=== PATIENT | male | born 1980 | race Caucasian/White ===

== ENCOUNTER 2020-03-04 17:15 | Outpatient (REF) | payer OTHER, SELFPAY ==
--- NOTE | 2020-03-04 17:19 | XR_ITS ---
EXAMINATION: CHEST 2 VIEWS CLINICAL INFORMATION: Pleurodynia. COMPARISON: February 06, 2016. TECHNIQUE: PA and lateral views of the chest were obtained. FINDINGS: The cardiac silhouette is not enlarged. The mediastinal and hilar contours are unremarkable. There are neither pleural effusions nor pneumothoraces. There are no consolidations. The osseous structures are unremarkable. XR/XR chest 2V IMPRESSION: No evidence for acute disease.
== END 2020-03-04 17:16 | disposition home or self-care (01) ==
LOC: HO.HMGCX 17:15
PROVIDERS: Visit Provider Physician Assistant
DX: R07.81 Pleurodynia (principal)
CPT/HCPCS: 71046

== ENCOUNTER 2020-03-21 08:22 | Outpatient (REF) | payer OTHER, SELFPAY ==
[2020-03-21 11:40] LABS: D Dimer < 200 NG/ML
[2020-03-21 11:52] LABS: Alanine Aminotransferase 34 U/L (0-40); Albumin Level 4.7 g/dL (3.5-5.0); Alkaline Phosphatase 80 U/L (39-117); Anion Gap 13 (12-20); Aspartate Amino Transferase 27 U/L (5-37); Bilirubin Total 0.7 mg/dL (0.0-1.0); Blood Urea Nitrogen 14 mg/dL (9-16); Calcium 9.9 mg/dL (8.4-10.2); Carbon Dioxide 32 mmol/L (22-29); Chloride 102 mmol/L (96-108); Estimated Glomerular Filt Rate > 60; Glucose Random 85 mg/dL (60-115); Potassium 5.1 mmol/l (3.3-5.1); Sodium 142 mmol/L (135-145); Total Protein 7.4 g/dL (6.5-8.0)
[2020-03-21 12:13] LABS: TSH reflex Free T4 1.26 mIU/mL (0.32-4.0)
== END 2020-03-21 08:23 | disposition home or self-care (01) ==
LOC: HO.HMGCLDS 08:22
PROVIDERS: PCP Internal Medicine; Visit Provider Nurse Practitioner Family
DX: E87.5 Hyperkalemia (principal); R07.81 Pleurodynia; R07.9 Chest pain, unspecified
CPT/HCPCS: 36415; 80053; 84443; 85379

== ENCOUNTER 2020-04-05 12:53 | Outpatient (REF) | payer OTHER, SELFPAY ==
--- NOTE | ~2020-04-05 | CT_ITS ---
EXAMINATION: CT CHEST WITHOUT CONTRAST CLINICAL INFORMATION: Chest pain COMPARISON: Previous chest x-ray most recent 03/04/[address] 02/06/2016 TECHNIQUE: Multidetector volumetric CT imaging of the chest was done. Axial MIP volume rendering provided. Sagittal and coronal reformatted images were obtained. This CT examination was performed using dose optimization techniques as appropriate, variously including the following: *Automated exposure control *Adjustment of mA and/or kV according to patient size (this includes techniques or standardized protocols for targeted exams where dose is matched to indication/reason for exam; i.e. extremities or head) *Use of iterative reconstruction technique DLP: 145 mGy-cm FINDINGS: PHYSICIAN/OPHTHALMOLOGIST: Unremarkable. LUNGS: The lungs are clear with no evidence of inflammation or nodules. MEDIASTINUM: The mediastinum is normal. PLEURA: There is no pleural effusion. No pleural mass or thickening. AXILLA: No lymphadenopathy. UPPER ABDOMEN: Unremarkable. OSSEOUS STRUCTURES: Unremarkable. CT/CT chest wo con IMPRESSION: Unremarkable examination.
== END 2020-04-05 12:54 | disposition home or self-care (01) ==
LOC: HO.CT 12:53
PROVIDERS: PCP Internal Medicine; Visit Provider Nurse Practitioner Family
DX: R07.9 Chest pain, unspecified (principal)
CPT/HCPCS: 71250

== ENCOUNTER 2021-09-26 15:08 | Outpatient (REF) | payer OTHER, SELFPAY ==
--- NOTE | ~2021-09-26 | XR_ITS ---
EXAMINATION: XR KNEE, LEFT CLINICAL INFORMATION: Pain in the left knee. COMPARISON: None TECHNIQUE: Four views of the left knee. FINDINGS: No evidence of acute fractures or subluxation. No significant degenerative changes. No erosions or chondrocalcinosis. Small to moderate joint effusion. XR/XR knee LT 4V IMPRESSION: No acute fracture or malalignment. Nonspecific small to moderate size joint effusion.
== END 2021-09-26 15:09 | disposition home or self-care (01) ==
LOC: HO.HMGCX 15:08
PROVIDERS: PCP Nurse Practitioner Family; Visit Provider Nurse Practitioner Family
DX: M25.562 Pain in left knee (principal)
CPT/HCPCS: 73564

== ENCOUNTER → 2021-10-17 13:37 | Outpatient (BNVA) | payer OTHER, SELFPAY | PROVIDERS: PCP Nurse Practitioner Family; Visit Provider Physician Assistant | DX: M65.341 Trigger finger, right ring finger (principal) | CPT/HCPCS: 20550; 99202; J1100 ==

== ENCOUNTER 2021-11-17 12:47 | Outpatient (REF) | payer OTHER, SELFPAY ==
--- NOTE | ~2021-11-17 | XR_ITS ---
EXAMINATION: XR KNEE AP STANDING. Patella view CLINICAL INFORMATION: Pain in the right knee COMPARISON: X-rays of the left knee August 2021 TECHNIQUE: AP bilateral standing view of the knees was obtained. Patella view left FINDINGS: Left knee: Bones joints and soft tissues are normal. Right knee limited: The medial lateral compartments are normal surrounding bone and soft tissues normal. XR/XR knee LT 1V IMPRESSION: Left knee Limited: Normal exam. Right knee Limited: Normal.
--- NOTE | ~2021-11-17 | XR_ITS ---
EXAMINATION: XR KNEE AP STANDING. Patella view CLINICAL INFORMATION: Pain in the right knee COMPARISON: X-rays of the left knee August 2021 TECHNIQUE: AP bilateral standing view of the knees was obtained. Patella view left FINDINGS: Left knee: Bones joints and soft tissues are normal. Right knee limited: The medial lateral compartments are normal surrounding bone and soft tissues normal. XR/XR knee standing BI IMPRESSION: Left knee Limited: Normal exam. Right knee Limited: Normal.
== END 2021-11-17 12:48 | disposition home or self-care (01) ==
LOC: HO.HOSX 12:47
PROVIDERS: Visit Provider Physician Assistant
DX: M70.42 Prepatellar bursitis, left knee (principal)
CPT/HCPCS: 73560; 73565; 99212

== ENCOUNTER → 2021-11-19 14:38 | Outpatient (BNVA) | payer OTHER, SELFPAY | PROVIDERS: PCP Nurse Practitioner Family; Visit Provider Internal Medicine | DX: K62.89 Other specified diseases of anus and rectum (principal) | CPT/HCPCS: 99202 ==

== ENCOUNTER 2021-11-19 15:43 | Outpatient (REF) | payer OTHER, SELFPAY ==
[2021-11-19 17:41] LABS: Hematocrit 46.5 % (42.0-52.0); Hemoglobin 15.7 g/dl (14.0-18.0); Mean Corpuscular HGB Conc 33.8 g/dl (31.0-36.0); Mean Corpuscular Hemoglobin 29.9 pg (27.0-33.0); Mean Corpuscular Volume 88.6 fL (80.0-98.0); Mean Platelet Volume 11.9 fL (9.4-12.4); Platelet Count 268 X10*3/uL (160-400); Red Blood Count 5.25 X10*6/uL (4.60-5.80); Red Cell Distribution Width 12.9 % (11.0-16.0); White Blood Count 6.6 X10*3/uL (4.8-10.8)
[2021-11-19 17:57] LABS: C Reactive Protein 0.11 mg/dL (< or = 0.50)
[2021-11-20 08:35] LABS: HIV AB/AG Nonreactive (Nonreactive); HIV Num 1 0.06 S/CO (0.00-0.99)
== END 2021-11-19 15:44 | disposition home or self-care (01) ==
LOC: HO.LAB 15:43
PROVIDERS: PCP Nurse Practitioner Family; Visit Provider Internal Medicine
DX: Z11.4 Encounter for screening for human immunodeficiency virus [HIV] (principal); K62.89 Other specified diseases of anus and rectum; R19.7 Diarrhea, unspecified
CPT/HCPCS: 36415; 85027; 86140; 87389

== ENCOUNTER 2022-01-30 07:16 | Outpatient (REF) | payer OTHER, SELFPAY ==
[2022-01-30 11:39] LABS: MANUAL DIFF FLAG NO
[2022-01-30 11:41] LABS: Basophils Percent Auto 0.4 % (0-2); Eosinophils Absolute Auto 0.2 X10*3/uL (0.0-0.4); Eosinophils Percent Auto 2.9 % (0-4); Hematocrit 48.4 % (42.0-52.0); Hemoglobin 15.7 g/dl (14.0-18.0); Imm Gran Abs Auto 0.02 X10*3/uL (0.00-0.03); Imm Gran Pct Auto 0.4 % (0.0-0.4); Lymphocytes Absolute Auto 1.5 X10*3/uL (1.2-4.9); Lymphocytes Percent Auto 28.5 % (20-40); Mean Corpuscular HGB Conc 32.4 g/dl (31.0-36.0); Mean Corpuscular Hemoglobin 29.2 pg (27.0-33.0); Mean Corpuscular Volume 90.1 fL (80.0-98.0); Monocytes Absolute Auto 0.6 X10*3/uL (0.1-1.2); Monocytes Percent Auto 11.3 % (2-11); Neutrophils Percent Auto 56.5 % (45-73); Platelet Count 266 X10*3/uL (160-400); Red Blood Count 5.37 X10*6/uL (4.60-5.80); Red Cell Distribution Width 12.8 % (11.0-16.0); White Blood Count 5.2 X10*3/uL (4.8-10.8)
[2022-01-30 12:46] LABS: Alanine Aminotransferase 64 U/L (0-40); Albumin Level 4.5 g/dL (3.5-5.0); Alkaline Phosphatase 117 U/L (39-117); Aspartate Amino Transferase 38 U/L (5-37); Bilirubin Total 0.4 mg/dL (0.0-1.0); Blood Urea Nitrogen 15 mg/dL (9-16); Calcium 9.7 mg/dL (8.4-10.2); Carbon Dioxide 30 mmol/L (22-29); Estimated Glomerular Filt Rate > 60; Ferritin 138 ng/mL (20-250); Glucose Random 86 mg/dL (60-115); Iron 61 mcg/dL (45-160); Percent Iron Saturation 24 % (15-50); Total Iron Binding Capacity 256 mcg/dL (228-428); Total Protein 7.2 g/dL (6.5-8.0); Unsaturated Iron Binding 195 ug/dL
[2022-01-30 13:03] LABS: Vitamin B12 478 pg/mL (200-900)
[2022-01-30 13:05] LABS: Anion Gap 18 (12-20); Chloride 102 mmol/L (96-108); Potassium 4.7 mmol/L (3.3-5.1); Sodium 143 mmol/L (135-145)
[2022-01-30 13:35] LABS: TSH reflex Free T4 1.71 uIU/mL (0.32-4.0)
[2022-02-02 12:03] LABS: Anti Nuclear Antibody Screen NEGATIVE (NEGATIVE)
[2022-02-04 13:22] LABS: A. Phagocytphilium DNA,RT-PCR NOT DETECTED (NOT DETECTED); Babesia Microti DNA, RT-PCR NOT DETECTED (NOT DETECTED); Borrelia Miyamotoi,DNA RT-PCR NOT DETECTED (NOT DETECTED); E.Chaffeensis DNA RT-PCR NOT DETECTED (NOT DETECTED); Lyme(Borrelia ssp)DNA RT-PCR NOT DETECTED (NOT DETECTED)
[2022-02-05 21:03] LABS: Testosterone, Free 91.7 pg/mL (35.0-155.0); Testosterone, Total 549 ng/dL (250-1100)
== END 2022-01-30 07:17 | disposition home or self-care (01) ==
LOC: HO.HMGCLDS 07:16
PROVIDERS: PCP Nurse Practitioner Family; Visit Provider Nurse Practitioner Family
DX: R53.83 Other fatigue (principal)
CPT/HCPCS: 36415; 80053; 82607; 82728; 83540; 84402; 84403; 84443; 85025; 86038; 86039; 87798; 87801

== ENCOUNTER 2022-03-06 09:03 | Outpatient (REF) | payer OTHER, SELFPAY ==
--- NOTE | ~2022-03-06 | US_ITS ---
EXAMINATION: US ABDOMEN COMPLETE CLINICAL INFORMATION: Elevated LFTs. COMPARISON: None TECHNIQUE: Real-time imaging of the abdominal viscera. FINDINGS: PANCREAS: Essentially obscured by bowel gas. Partially visualized neck appears unremarkable. ABDOMINAL AORTA: The proximal, mid, and distal segments are normal in caliber. INFERIOR VENA CAVA: Visualized portions are normal. LIVER: Normal. The liver is normal in size. The liver contour is normal. Parenchymal echogenicity is normal. No focal hepatic lesion. There is no intrahepatic biliary duct dilatation seen. GALLBLADDER: Normal. The gallbladder is physiologically distended without evidence of stones, sludge, polyps, wall thickening or pericholecystic fluid. COMMON BILE DUCT: Normal in caliber measuring 0.3 cm in diameter. RIGHT KIDNEY: Normal. No hydronephrosis. No renal calculi or focal parenchymal lesions. The kidney measures 10.2 cm in maximum dimension. LEFT KIDNEY: Normal. No hydronephrosis. No renal calculi or focal parenchymal lesions. The kidney measures 11.0 cm in maximum dimension. SPLEEN: Normal. The spleen measures 10.1 cm in maximum dimension. FREE FLUID: None. US/US abdomen complete IMPRESSION: 1. Pancreas obscured by bowel gas. 2. Otherwise unremarkable study.
== END 2022-03-06 09:04 | disposition home or self-care (01) ==
LOC: HO.HMGCX 09:03
PROVIDERS: PCP Nurse Practitioner Family; Visit Provider Nurse Practitioner Family
DX: R74.8 Abnormal levels of other serum enzymes (principal)
CPT/HCPCS: 76700

== ENCOUNTER 2022-03-28 13:27 | Outpatient (REF) | payer OTHER, SELFPAY ==
[2022-03-30 04:30] LABS: HBS Num1 0.66 mIU/mL (0-7.99); HBc Num1 0.07 S/CO (0.00-0.79); HBsAGNum1 0.35 S/CO (0.00-0.99); Hepatitis A Antibody IgM 0.13 Index (0-0.79); Hepatitis B Core Antibody Nonreactive (Nonreactive); Hepatitis B Surface Antigen Negative (Negative); ~HepC Num1 0.07 S/CO (0.00-0.79); ~Hepatitis A Antibody IgM Nonreactive (Nonreactive); ~Hepatitis B Surface Antibody NONREACTIVE (Nonreactive); ~Hepatitis C Antibody Nonreactive (Nonreactive)
== END 2022-03-28 13:28 | disposition home or self-care (01) ==
LOC: HO.HMGCLDS 13:27
PROVIDERS: PCP Nurse Practitioner Family; Visit Provider Nurse Practitioner Family
DX: R74.8 Abnormal levels of other serum enzymes (principal)
CPT/HCPCS: 36415; 86704; 86706; 86709; 86803; 87340

== ENCOUNTER 2022-04-23 09:33 | Day surgery (SDC) | payer OTHER, SELFPAY ==
[2022-04-17 14:19] VITALS: BMI 24.2
--- NOTE | 2022-04-23 09:51 | MHC.SHP ---
Pre-Procedural Eval Section A Date of Service: 04/23/22 Section B Chief Complaint: Proctalgia Details of Present Illness: Surgical History H/O hand surgery H/O knee surgery H/O vasectomy H/O wisdom tooth extraction Present Medications: see Short Stay Collaborative assessment Medical History: No relevant PMH Allergies: Allergies Allergy/AdvReac Type Severity Reaction Status Date / Time No Known Allergies Allergy Verified 12/31/21 16:23 Review of Systems Review of Systems Comment: 10 point ROS negative Exam Exam Comment: Gen appear: No acute distress HEENT: no icterus Chest: No overt resp distress Abd: soft, nontender, nondistended Psych: Stable affect, answering questions appropriately Neuro: A/Ox3 noted to move all extremities spontaneously Ext: no peripheral edema Plan Diagnosis/Plan: Unchanged I have reviewed the history and physical and performed a pertinent physical examination on my patient. No changes have occurred unless specified. Time Spent With Patient Time: Total time managing care of this patient today ____ minutes.
--- NOTE | 2022-04-23 09:59 | P.OP_ITS ---
Operative Note Operative Note Date of Service: 04/23/22 Narrative: Procedure: Colonoscopy Indication: Rectal pain Endoscopist: Jennifer Quevedo MD Anesthesia Provider: Dr Jana Donald Anesthesia type: MAC Instrument: Olympus [id number]-[id number] Consent: Indication, risks vs benefits, and alternatives were discussed with the patient who gave written informed consent to proceed. EKG, pulse, pulse oximetry and blood pressure were monitored throughout the procedure. Please see anesthesia flowsheet. Procedure: The patient was brought to the procedure room and placed in the left lateral decubitus position. IV medications were administered by the anesthesia provider in attendance. A digital rectal exam was performed which was normal. The colonoscope was then inserted through the anus and advanced through the colon to the cecum at 75 cm,and terminal ileum. Mucosa was carefully examined under high definition white light as the instrument was slowly withdrawn in a retrograde panoramic fashion. Retroflexion was performed in ascending colon and rectum. The procedure was not difficult. There were no immediate obvious complications. The quality of the prep was BBPS: 2+3+3 = adequate Withdrawal time 12 minutes. Limitations: No limitations. Findings: Mucosa: Normal to cecum and terminal ileum. Protruding lesions: * Medium internal hemorrhoids without stigmata of recent bleeding. Excavated lesions: * Moderate diverticulosis of left sided colon. Impression: 1. Normal colon and terminal ileum mucosa 2. Diverticulosis 3. Internal hemorrhoids Recommendations: - No luminal abnormality in anorectum to explain intermittent proctalgia. - Repeat colonoscopy in 10 years for asymptomatic CRC screening.
[2022-04-23] MEDS: Lactated Ringers 1,000 ML 50 ML IVCONT (10:06)
[2022-04-23 10:15] VITALS: BP 120/69; PULSE 65; RESP 18; TEMP 36.6; O2SAT 98
--- NOTE | 2022-04-23 11:03 | HO.ANESPROP2 ---
HPI - Anesthesia Eval Consult details Narrative: rectal pain PMFSH Active Problems Active Problems: All Active Problems (Updated 04/17/22 @ 14:18 by Rosi Kraus RN) Pleuritic chest pain (Acute) Hyperkalemia (Acute) Chest pain (Acute) Left knee pain (Acute) Finger pain, right (Acute) Trigger finger, right (Acute) Internal hemorrhoids (Acute) Prepatellar bursitis of left knee (Acute) Fatigue (Acute) Elevated liver enzymes (Acute) Past Medical History Medical History (Updated 04/17/22 @ 14:18 by Rosi Kraus RN) No pertinent past medical history Family History Family History Mother Breast cancer Family history of problems with anesthesia: No Surgical History Surgical History (Updated 04/17/22 @ 14:05 by Rosi Kraus RN) H/O hand surgery H/O knee surgery H/O vasectomy H/O wisdom tooth extraction History of Problems with Anesthesia: No Social History Social History Housing: House Are you a primary care associate to a significant other at home: No Do you presently have visiting nurse or other home services: No Patient Tobacco Use Status: Never used Tobacco e-Cigarette/Vaping Use: Never Used Second Hand Smoke Exposure: No Use of substances other than those prescribed or required for medical reasons: No Have you been hit, kicked, punched, or otherwise hurt by someone within the past year? If so, by whom?: No Are you DNR?: No Advance Directives: No Advance Directives Information Provided: Yes (brochure mailed) Advance Directives on File: No Recently lost weight without trying: No Eating poorly because of decreased appetite: No Nutrition Risks: No Nutritional Risk Poor oral hygiene: No service: Yes Current occupational status: employed Current occupation: [employer] Current occupational exposures/hazards: No Cognitive needs: No Hearing needs: No Vision needs: No Meds Allergies Allergy/AdvReac Type Severity Reaction Status Date / Time No Known Allergies Allergy Verified 12/31/21 16:23 Active Medications: Current Medications Lactated Ringer's (Lr) 1,000 mls @ 50 mls/hr IVCONT .Q20H BENNETT Last Admin: 04/23/22 10:06 Dose: 50 mls/hr Home Medications Medication Instructions Recorded Confirmed Last Taken Type multivitamin 1 tab PO DAILY 11/19/21 04/17/22 Unknown History Exam Exam Date and Time: April 23, 2022 1103 Height,Weight and Vital Signs: Height 5 ft 6 in Weight 68.039 kg Last Vital Signs Temp 97.9 F 04/23/22 10:15 Pulse 65 04/23/22 10:15 Resp 18 04/23/22 10:15 BP 120/69 04/23/22 10:15 Pulse Ox 98 04/23/22 10:15 O2 Del Method 04/23/22 10:15 Airway Mallampati Class: I TM Dist: >3cm Neck ROM: Full Heart: rr Lungs: cta Assessment and Plan Assessment Anesthesia Assessment: Anesthesia Plan Discussed and Chart Reviewed Final Anesthetic Review Family History of Problems with Anesthesia: No History of Problems with Anesthesia: No NPO: Yes ASA Class: I Final Preanesthetic Review: No Changes in Pt Med Stat, Meds/Allgs Chart Reviewed, Consent Obtained/Reviewed and Anes Risks/Benef Reviewed Patient Risk: Low Procedure Risk: Low Anesthetic Plan Anesthetic Plan: MAC: Disposition: Standard PACU
[2022-04-23 11:18] VITALS: BP 81/42; PULSE 68; RESP 18; TEMP 36.2; O2SAT 96
[2022-04-23 11:23] VITALS: BP 92/57
[2022-04-23 11:44] VITALS: BP 104/72; PULSE 55; RESP 18; TEMP 36.2; O2SAT 98
== END 2022-04-23 12:10 | disposition home or self-care (01) ==
PROVIDERS: PCP Nurse Practitioner Family; Visit Provider Internal Medicine
PROC: 0DJD8ZZ Inspection of Lower Intestinal Tract, Via Natural or Artificial Opening Endoscopic (ICD-10-PCS; CPT 45378; principal; 2022-04-23 10:50)
DX: K62.89 Other specified diseases of anus and rectum (principal); K57.30 Diverticulosis of large intestine without perforation or abscess without bleeding; K64.8 Other hemorrhoids; Z98.52 Vasectomy status
CPT/HCPCS: 45378

== ENCOUNTER → 2022-05-08 12:21 | Outpatient (BNVA) | payer OTHER, SELFPAY | PROVIDERS: PCP Nurse Practitioner Family; Visit Provider Internal Medicine | DX: K62.89 Other specified diseases of anus and rectum (principal) | CPT/HCPCS: 99212 ==

== ENCOUNTER 2022-05-13 16:29 | Outpatient (REF) | payer OTHER, SELFPAY ==
--- NOTE | ~2022-05-13 | XR_ITS ---
EXAMINATION: XR SHOULDER, RIGHT CLINICAL INFORMATION: A sprain of the right shoulder. COMPARISON: Radiograph of the right shoulder 11/23/2008. TECHNIQUE: Four views of the right shoulder. FINDINGS: The bones and soft tissues are normal. No fracture. Glenohumeral and acromioclavicular alignment is anatomic with normal joint space. No abnormal soft tissue calcifications. XR/XR shoulder RT min 2V IMPRESSION: Normal right shoulder.
== END 2022-05-13 16:30 | disposition home or self-care (01) ==
LOC: HO.HMGCX 16:29
PROVIDERS: PCP Nurse Practitioner Family; Visit Provider Internal Medicine
DX: S43.401A Unspecified sprain of right shoulder joint, initial encounter (principal); X58.XXXA Exposure to other specified factors, initial encounter; Y93.9 Activity, unspecified; Y92.9 Unspecified place or not applicable; Y99.9 Unspecified external cause status
CPT/HCPCS: 73030

== ENCOUNTER → 2022-05-20 10:42 | Outpatient (BNVA) | payer OTHER, SELFPAY | PROVIDERS: PCP Nurse Practitioner Family; Visit Provider Physician Assistant | DX: M75.21 Bicipital tendinitis, right shoulder (principal); M75.81 Other shoulder lesions, right shoulder | CPT/HCPCS: 99212 ==